=== PATIENT | male | born 1995 | race Caucasian/White ===

== ENCOUNTER 2019-06-24 13:09 | Emergency (ER) | payer MEDICAID ==
[~2019-06-24] VITALS: Ht 188 cm; Wt 71.5 kg
[2019-06-24 13:11] VITALS: BP 113/73
== END 2019-06-24 14:09 | disposition home or self-care (01) ==
LOC: ER 13:09
DX: F11.10 Opioid abuse, uncomplicated (principal)
CPT/HCPCS: 99281